=== PATIENT | female | born 1940 | race Caucasian/White ===

== ENCOUNTER → 2022-09-17 | Outpatient (CLI) | payer BC ==
--- NOTE | 2022-09-17 13:01 | Diagnostic Imaging Report ---
Left knee at 922 hours. INDICATION: Knee pain. 4 views were obtained. There are no prior studies available for comparison. There is no fracture, dislocation or acute bony abnormality evident. 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 The soft tissues are unremarkable. IMPRESSION: 1. There is no evidence for an acute bony abnormality. 2. 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 Dictated by: Dictated on workstation # [id number]
== END ==
LOC: ORTHO 09:10
PROVIDERS: ATTEND Orthopaedic Surgery
DX: M17.12 Unilateral primary osteoarthritis, left knee (principal)
CPT/HCPCS: 73564; G0463; 99203